=== PATIENT | male | born 1955 | race Caucasian/White ===

== ENCOUNTER 2019-06-14 09:06 | Emergency (ER) | payer OTHER, SELFPAY ==
--- NOTE | 2019-06-14 09:18 | ED.GENADUL_ITS ---
Discharge Plan Disposition Patient Disposition: HOME Condition: Stable Discharge Details Chief Complaint: Sorethroat Clinical Impression: Pharyngitis Primary Care Provider: Unknown,Unknown ED Provider: Sergey Ducnan Home Meds and New Rx's Prescriptions: New penicillin V potassium 500 mg tablet 500 mg PO TID 10 Days Qty: 30 RF: 0 Continued metoprolol succinate 50 mg Tablet Extended Release 24 Hr 50 mg PO DAILY RF: 0 levothyroxine 100 mcg Tablet 100 mcg PO DAILY RF: 0 valsartan 320 mg Tablet 320 mg PO DAILY RF: 0 allopurinol 300 mg Tablet 300 mg PO DAILY RF: 0 hydrochlorothiazide 25 mg Tablet 25 mg PO DAILY RF: 0 rosuvastatin 20 mg Tablet 20 mg PO DAILY RF: 0 aspirin [Aspirin Low Dose] 81 mg Tablet,Delayed Release (Dr/Ec) 81 mg PO DAILY RF: 0 Discharge Instructions Instructions: Pharyngitis (ED) Additional Instructions: Continue small, frequent sips of fluids to maintain hydration. Popsicles and/or gargling salt water may aid in resolution of your discomfort. Return if develop high fever, drooling, muffled voice, difficulty swallowing, or any other concerns. As we discussed I recommend you hold filling the penicillin prescription for 24 to 36 hours as we discussed. Continue all regular medications. Tylenol and/or ibuprofen as needed for pain. Medical Decision Making 63-year-old male who lives in [facility], here visiting his mother in [place]. He has had 2 to 3 days of sore throat, no other sniffing symptoms. No drooling, no change to voice, no cough or shortness of breath. He is afebrile and well-appearing with an erythematous oropharynx. Rapid strep test negative, culture ordered. Discussed with him single one-time dose of dexamethasone for its anti-inflammatory properties. As he is out of town, we have agreed to proceed with a [id number] approach the use of a course of penicillin which I will prescribe. He understands homecare as well as follow-up/return precautions. He is stable for discharge to home at this time. HPI General Mode of arrival: ambulatory . Date/Time Provider Initiated Documentation: 06/14/19 09:07 . Limitations to Documentation: no limitations . Information obtained by: patient . History of Present Illness 63 year old M presents to the emergency department with the chief complaint of Sore throat for 2 days, described as moderate, Quality is described as dull and constant, and is localized to the mouth. Patient reports no radiation. Patient started experiencing this day(s) and it has been constant. No relieving factors improve symptom(s), No exacerbating factors reported . Related Data Home Medications Medication Instructions Recorded Confirmed allopurinol 300 mg PO DAILY 06/14/19 06/14/19 aspirin [Aspirin Low Dose] 81 mg PO DAILY 06/14/19 06/14/19 hydrochlorothiazide 25 mg PO DAILY 06/14/19 06/14/19 levothyroxine 100 mcg PO DAILY 06/14/19 06/14/19 metoprolol succinate 50 mg PO DAILY 06/14/19 06/14/19 penicillin V potassium 500 mg PO TID 10 Days #30 tab 06/14/19 rosuvastatin 20 mg PO DAILY 06/14/19 06/14/19 valsartan 320 mg PO DAILY 06/14/19 06/14/19 Previous Rx's Medication Instructions Recorded penicillin V potassium 500 mg PO TID 10 Days #30 tab 06/14/19 Allergies Allergy/AdvReac Type Severity Reaction Status Date / Time No Known Allergies Allergy Unverified 06/14/19 09:25 Review of Systems Narrative: Lives in [place]. Visiting family. 6 systems reviewed and otherwise neg ON LICENSE OF [facility] Medical History (Updated 06/14/19 @ 09:28 by Debbie Del Rio) Atrial fibrillation (Chronic) Gout (Chronic) Hypercholesteremia (Acute) Hypertension (Chronic) Hypothyroid (Chronic) Social History Smoking/Tobacco Use Status: Former Tobacco Use Alcohol Intake: current Alcohol Intake frequency: a few times a week Substance use type: does not use Do you feel safe at home: Yes Do you feel safe in your relationship?: Yes Exam Narrative Exam Narrative: GEN: awake, alert, oriented 3. Pleasant, well groomed, interactive. HEAD: Normocephalic, atraumatic ENT: Mucous membranes moist, oropharynx erythematous, no assymery, + submandibular CHELSEY, TMs clear. External ear exam unremarkable EYES: PERRL, EOMI NECK: Full ROM, no CHELSEY, no menigismus CHEST/RESP: Nontender, clear to auscultation bilateral, no wheeze/rhonchi/rales CARDIOVASCULAR: RRR, no murmur, rub carmen. 2+ Rad pulse bilateral ABDOMEN: Soft, nontender, no mass. +Bowel sounds EXT: Full ROM, no edema, no rash Neuro: Grossly normal neurologic exam, conversant, interactive. Psych: Speech fluent, thoughts congruent, affect normal
[2019-06-14 09:21] VITALS: PULSE 87; RESP 18; TEMP 36.5; O2SAT 96
[2019-06-14 09:55] VITALS: PULSE 87; RESP 18; TEMP 36.5; O2SAT 96
== END 2019-06-14 09:44 | disposition home or self-care (01) ==
LOC: ER 10:05
PROVIDERS: Emergency Provider Emergency Medicine
DX: J02.9 Acute pharyngitis, unspecified (principal)
CPT/HCPCS: 87880; 99283; 87081